=== PATIENT | male | born 1950 | race Caucasian/White ===

== ENCOUNTER → 2018-05-20 15:07 | Outpatient (CLI) | payer MEDICARE, OTHER, SELFPAY ==
--- NOTE | 2018-05-20 | DI.MRI.S_ITS ---
PROCEDURE: MR KNEE RT WO CON INDICATIONS: RIGHT KNEE PAIN TECHNIQUE: Noncontrast sagittal PD fast spin echo and T2 fast spin echo with fat saturation, sagittal 3-D FLASH with fat saturation; coronal T1 spin echo and PD fast spin echo with fat saturation, and axial PD fast spin echo with fat saturation through the knee. COMPARISON: None. FINDINGS: Image quality: Excellent. Menisci: Lateral meniscus appears intact. Complex, macerated circumferential tear of the medial meniscus involving anterior horn posterior horn and body. Cruciate ligaments: Low signal thickening of anterior cruciate ligament suggestive of chronic partial rupture. The posterior cruciate ligament appears intact. Medial structures: The medial collateral ligament appears intact. The posterior oblique ligament, semimembranosus tendon insertions, oblique popliteal ligament, and meniscocapsular junction appear intact. Visualized portions of the pes anserinus tendons appear normal. No abnormal bursal fluid. Lateral structures: The lateral collateral ligament, long and short heads of the biceps femoris tendon appear intact. The popliteus tendon appears normal; the popliteofibular ligament appears intact. The posterosuperior and anteroinferior popliteomeniscal fascicles appear intact. The arcuate and fabellofibular ligaments appear intact, on either side of the lateral inferior geniculate artery. Iliotibial band appears normal. Anterior structures: Proximal and distal patellar tendinopathy, mild. There is adjacent soft tissue edema. Distal quadriceps tendon appears intact Patellar alignment is normal. No femoral trochlear dysplasia or ventral trochlear prominence. No edema in the infrapatellar fat pad. Bones and cartilage: No focal marrow contusion or discrete low signal fracture line. Within the medial compartment, diffuse full thickness denudation of the femoral and tibial articular cartilage with underlying subchondral cystic change/marrow edema. Within the lateral compartment, intrasubstance signal change present within the central weightbearing tibial cartilage and there is diffuse partial-thickness loss of the femoral cartilage. Within the patellofemoral compartment, diffuse partial-thickness loss and surface fraying of the patellar and femoral trochlear cartilage. Joint space: Gr's cyst measuring approximately 5.1 cm in a cephalocaudad dimension. Moderate joint effusion. No intra-articular loose bodies identified. IMPRESSION: Macerated circumferential tear of the medial meniscal anterior horn, body and posterior horn. 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 Advanced joint degeneration, most notably involving the medial compartment. Gr cyst. Moderate joint effusion. Dictated by: Bong Larson M.D. on 05/20/2018 at 17:03 Approved by: Bong Larson M.D. on 05/20/2018 at 17:13
== END ==
PROVIDERS: Visit Provider Orthopaedic Surgery
DX: M25.561 Pain in right knee (principal); S83.231A Complex tear of medial meniscus, current injury, right knee, initial encounter; M71.21 Synovial cyst of popliteal space [Baker], right knee; M17.11 Unilateral primary osteoarthritis, right knee; M25.461 Effusion, right knee
CPT/HCPCS: 73721

== ENCOUNTER → 2018-11-08 12:14 | Outpatient (CLI) | payer MEDICARE, OTHER, SELFPAY | PROVIDERS: PCP Internal Medicine; Visit Provider Orthopaedic Surgery | DX: Z01.818 Encounter for other preprocedural examination (principal) | CPT/HCPCS: 93005; 93010 ==

== ENCOUNTER → 2018-11-20 11:09 | Outpatient (CLI) | payer MEDICARE, OTHER, SELFPAY ==
--- NOTE | 2018-11-20 | DI.NM.S_ITS ---
PROCEDURE: NM PATRICIA PERF SPECT R&S PHARM Rest and pharmacological stress myocardial perfusion SPECT with gated imaging and ejection fraction RADIOPHARMACEUTICAL: 24.8 mCi Tc-99m tetrafosmin IV at rest and 26.8 mCi Tc-99m tetrafosmin IV at peak effect of pharmacological stress. [id number] was performed. INDICATIONS: Atrioventricular block, 2nd degree TECHNIQUE: Radiopharmaceutical was injected at peak stress test, and also at rest. SPECT images were obtained. SPECT myocardial perfusion images were displayed in short axis, horizontal long axis, and vertical long axis views. Gated images were reviewed using [employer] software. COMPARISON: None. CARDIAC STRESS: A pharmacologic stress test was performed under the supervision of an attending staff, using an infusion of lexiscan 0.4mg IV X1. Hemodynamic data: There is normal blood pressure and heart rate response to pharmacologic stress. Symptoms: The patient denied anginal chest pain. Aminophylline: none EKG: Resting ECG shows sinus rhythm with ST depressions and T wave inversions diffusely. No diagnostic changes of ischemia with lexican; frequent PVCs throughout the study. FINDINGS: Raw data: There is good myocardial uptake of radiotracer. No significant motion artifacts. Hbhs-bl-qdiih ratio is 0.36 (normal is less than 0.38 for tetrafosmin tracer). Left ventricle function: Gated images demonstrate normal left ventricular wall thickening. No segmental wall motion abnormalities. No transient ischemic dilation; TID is 0.88 (normal less than 1.3). Left ventricle resting end diastolic volume is 161 mL. Left ventricle stress ejection fraction is 58%; normal range is above 45%. Myocardial perfusion: Severe fixed defect in the inferior wall extending to the apex consistent with prior infarct. No ischemia. SSS 6. Prone images show persistent defect as described earlier. IMPRESSION: Abnormal pharmaceutical nuclear stress test consistent with prior infarct. No ischemia 1) Severe fixed defect in the inferior wall extending to the apex consistent with prior non-transmural infarct. No ischemia. SSS 6. 2) Mildly enlarged left ventricle (EDV 161cc) with normal wall motion and normal systolic function (EF post stress 58%). 3) No ECG evidence of ischemia. Frequent PVCs during the study. 4) No angina during the study. 5) No prior nuclear stress test available for comparison. Dictated by: Jennifer Wynn MD on 11/22/2018 at 13:00 Approved by: Jennifer Wynn MD on 11/22/2018 at 13:06
--- NOTE | 2018-11-20 12:14 | PM.TREADMILL ---
Cardiac Stress Test Report Referral & Results Date Patient Seen: 11/20/18 Time Patient Seen: 12:15 Requesting provider: Alber Fraga Indication: Ventricular dysrhythmia Rest ECG: Frequent PVCs including runs of ventricular bigeminy and trigeminy and multifocal source of PVCs Procedure Note: After both written and verbal informed consent the patient had an IV started by the diagnostic imaging RN, and then was hooked up to the treadmill monitoring system. The Lexiscan material, and then the Cardiolite tracer, were administered sequentially. An additional 3 min was spent monitoring the patient while supine on the gurney. The patient had a normal response to all infused materials. Impression: No change in patient's dysrhythmia Normal response to infuse materials as above Please see perfusion imaging report for details regarding possible ischemia Please note: Actual ECG tracings can be found in the PACS system.
== END ==
PROVIDERS: PCP Internal Medicine; Visit Provider Internal Medicine
DX: I44.1 Atrioventricular block, second degree (principal)
CPT/HCPCS: 78452; 93016; 93017; 93018; A9502; J2785

== ENCOUNTER 2018-12-11 11:39 | Observation (INO) | payer MEDICARE, OTHER, SELFPAY ==
[2018-11-26 12:58] VITALS: BMI 44.5
[2018-12-10] VITALS (17 sets, daily range): BP systolic 120–160; BP diastolic 64–110; PULSE 80–114; RESP 12–20; TEMP 36.3–37.1; O2SAT 91–98; BMI 38.8
--- NOTE | 2018-12-10 06:00 | DI.RAD.S_ITS ---
PROCEDURE: XR KNEE LT 1TO2V INDICATIONS: post-op TECHNIQUE: 2 view(s) of the knee acquired. COMPARISON: None. FINDINGS: Bones: Patient is status post knee joint arthroplasty. Hardware components are in expected positions. Visualized bony structures are intact. Soft tissues: Overlying postoperative changes are noted. IMPRESSION: Normal alignment after right total the arthroplasty. A surgical drain overlies the operative bed. Dictated by: Florencio Fernandez M.D. on 12/10/2018 at 12:07 Approved by: Florencio Fernandez M.D. on 12/10/2018 at 12:07
[2018-12-10] MEDS: LACTATED RINGERS 1,000 ML 42 ML IV ×2 (07:00→10:26)
[2018-12-10] MEDS: VANCOMYCIN 1,000 MG/200 ML PIGGYBACK 200 MG IV (07:00)
[2018-12-10] MEDS: CELECOXIB 200 MG CAPSULE PO (07:15)
[2018-12-10] MEDS: PREGABALIN 75 MG CAPSULE PO (07:16)
[2018-12-10] MEDS: MIDAZOLAM 2 MG/2 ML VIAL IV (07:45)
--- NOTE | 2018-12-10 07:49 | PM.PREOP ---
Pre-operative Note Interval Note History & Physical reviewed/Exam performed by Physician: No Changes to H&P: No
--- NOTE | 2018-12-10 07:52 | P.OP_ITS ---
Operative Date/Time/Diagnoses Date of procedure: 12/10/18 Time of procedure: 08:10 Pre-op diagnosis: right knee oa Post-op diagnosis: same Procedure & Clinicians Procedure: right total knee arthroplasty Same procedure as scheduled: Yes Indications: The patient has had progressively worsening right knee pain with radiographic changes consistent with arthritis. Non-operative management has failed and the patient has requested total knee replacement. The risks, benefits and alternatives to surgery were discussed with the patient prior to proceeding. Risks discussed included, but were not limited to, failure to relieve pain, stiffness, infection, nerve damage, deep venous thrombosis, pulmonary embolism, stroke, coma, heart attack, permanent paralysis and , as well as the potential need for eventual revision of the prosthetic. Surgeon: Roxie Hdz System Technologist: Valeria Coy Anesthesia Type: General and Peripheral nerve block Operative Notes Findings: Severe right hip osteoarthritis, good stability Closure Type: primary Specimen(s): none sent Prosthetic devices, grafts, tissues, transplants, or devices: [facility] size 8 femur, size 7 tibia, +9 poly, 41 mm patella oval Applied: drain(s) Estimated Blood Loss (mL): 250 Blood products transfused: none Tourniquet time (min): 97 Procedure in detail: The patient was seen in the pre-operative area, where the patient identified the right knee as the operative site and this was marked with my initials. The patient received pre-operative antibiotics, and was taken to [facility] operating room and placed on the operative table in the supine position. After satisfactory anesthesia, a multimedia specialist out was performed. The right leg was encircled with a tourniquet about the proximal thigh, and the leg was prepared from the toes to the tourniquet with ChloroPrep in the usual fashion and draped through sterile drapes. The leg was elevated and exsanguinated with Eschmark bandage and the tourniquet inflated to [250] mmHg pressure. Hemostasis was achieved with Bovie and the Aquamantys. The knee was approached through an approximately 18 cm incision centered over the patella and carried into the knee through a medial parapatellar arthrotomy. Portion of the medial and lateral meniscus was resected. Soft tissue was carefully mobilized around the patella the patella was measured with a caliper. Bone was resected from the patella and the patellar height was reconstituted with up an appropriate sized patellar component. A cover was then placed on the patella. A small amount of additional medial and lateral meniscus was resected. The visionare guide fit well to the distal femur. It looked like an appropriate distal femoral cut and the cut was made without difficulty. The rotation was assessed and the appropriate size femoral guide was placed on the distal femur and finishing cuts were made. There is no evidence of notching. The anterior, posterior and chamfer cuts were then made. The posterior osteophytes and soft tissues were then removed. The posterior capsule was injected with part of a mixture of 60 ml 0.25% Marcaine mixed with 20 ml Exparel for post operative pain control. The remainder of this mixture was injected into the capsule and subcutaneous tissues during cement curing. The tibia was prepared and the visionaire guide fit well to the distal tibia. The rotation was assessed. The patient was placed in extension residual medial and lateral meniscus as well as any residual bone was carefully resected. [2mm] additional tibia was resected as it was a minimal skim cut. Hemostasis was achieved especially posteriorly. Additional local was injected into the posterior capsule. The extension gap was assessed and additional releases for gap balancing were performed as necessary. It was checked with the gap typing element machine operator. The femoral component was trial was placed and the notch was finished. Trial tibial and femoral components were then placed and the knee placed through a range of motion. Range of motion was [0-130], with good stability throughout the range. The trials were then removed, and the tibia was finished. The bone was prepared with pulsatile lavage, and dried with a sponge. Cement was applied and the final prosthetics placed. Excess cement was removed during and after cement curing. A brief Betadine soak was performed. After confirming there was no extruded cement posteriorly, the final tibial insert was placed. The knee was copiously irrigated and the tourniquet deflated. Hemostasis was obtained with the bovie. A drain was placed and brought out superolaterally. The capsule was closed with interrupted Vicryl suture. The subcutaneous layer was closed with barbed sutures, and the skin with a running 3-0 V-Lock suture and Surgical glue. An Aquacel Ag dressing was applied and the patient was taken to recovery having tolerated the procedure well. Complications: none Post-operative Condition: stable Disposition: Acute Care Plan for aftercare: The patient will be maintained on a standard total knee replacement protocol with weight bearing as tolerated. The patient will receive aspirin and sequential compression devices for DVT prophylaxis. The patient will be discharged home when safe for the home environment.
[2018-12-10] MEDS: CEFAZOLIN 2 GM/100 ML FROZ.PIGGY IV (08:00)
--- NOTE | 2018-12-10 08:27 | SUR.OPER ---
Supine on padded OR bed. Pillow under head, arms secured on padded armboards <90 degree abduction. Safety belt across torso. Non-operative leg secured with tape over blanket over lower leg. Operative leg secured in DeMayo positioner. Foam padded brace at thigh of operative leg.
[2018-12-10] MEDS: BUPIVACAINE LIPOSOME 266 MG/20 ML VIAL INJ (08:34)
[2018-12-10] MEDS: SODIUM CHLORIDE IRRIG SOLUTION 250 ML, POVIDONE-IODINE SPONGE STICKS 1 APPLIC IRR (08:35)
[2018-12-10] MEDS: BUPIVACAINE 0.25% W/ EPI 30 ML VIAL 60 ML INJ (08:35)
[2018-12-10] MEDS: TRANEXAMIC ACID 1,000 MG VIAL 1000 MG INJ (08:38)
--- NOTE | 2018-12-10 08:46 | P.PCN_ITS ---
Procedures Date/Time Date of procedure: 12/10/18 Time of procedure: 07:48 Nerve Block Time out performed: Yes Local anesthetic used: lidocaine 1% (5mL + 15mL 0.5opivacaine) Location of anesthetic used: adductor canal Amount of anesthesia used (mL): 20 Nerve blocks: femoral (adductor canal) Procedure successful: Yes Patient tolerated procedure: well Complications: none Additional comments: RIGHT Adductor canal block for post operative pain manag ement. R/B discussed. Site marked. Consent verified/signed. Standard ASA monitors. NC O2. 2mg midazolam. Chloraprep. Sterile technique. Femoral A/V/N identified medial mid thigh with US. Lidocaine skin wheal. 100mm x 21g Pajunk needle advanced with in-plane US guidance. Negative aspiration. LA injected medial and lateral to femoral artery. Negative aspiration throughout. No pain, no paresthesia with injection. VSS. Tolerated well. To OR.
[2018-12-10] MEDS: LACTATED RINGERS 1,000 ML 125 ML IV (12:45)
--- NOTE | 2018-12-10 13:33 | PC.NURSE ---
Pt is A&Ox3. He denies pain to his R.Knee. Pt has an acewrap with aquacel dressing in place and hemovac that was unclamped around 1300. He has bright red blood in chamber. Family in room and pt eating his lunch at this time.
[2018-12-10] MEDS: ACETAMINOPHEN 325 MG TABLET 975 MG PO ×2 (14:28→21:58)
--- NOTE | 2018-12-10 15:29 | PT.IIE ---
Current Diagnoses Unilateral primary osteoarthritis, right knee (12/10/18) Surgery Performed Operation Date: 12/10/18 07:45 Actual Procedures p Total Knee Arthroplasty(Right) - Roxie Hdz MD Surgical History (Last Updated 11/26/18 @ 14:05 by Bella Bahena, RN) H/O vasectomy (Acute) Hx of right inguinal hernia repair (Acute ~1977) Hx of tonsillectomy (Acute) Medical History (Last Updated 11/26/18 @ 14:05 by Bella Bahena RN) COPD (chronic obstructive pulmonary disease) (Acute) Enlarged prostate (Acute) Former smoker (Acute) Gout (Acute) Hearing impaired (Acute) HTN (hypertension) (Acute) Hx of strabismus (Acute) Lower back pain (Acute) Pyloric stenosis (Acute) RLS (restless legs syndrome) (Acute) Physical Therapy Inpatient Evaluation/Re-Eval M1 PT/OT-IP Prior Functional Status Start: 12/10/18 13:47 Freq: NEEDED Status: Active Protocol: Document 12/10/18 15:08 AW (Rec: 12/10/18 15:29 AW [id number]) Medical Review Prior Functional Status Medical History Reviewed Yes Diet/Fluid Consistency Regular Communication Able to make needs known Mobility and Gait Pt reports prior independence with all functional mobility, though it has been increasingly difficult due to worsening pain Activities of Daily Living and IADL's Independent Social History Household Members significant other,family Living Arrangements House Number of Floors (Floors) One Floor Number of Stairs To Enter/Railing? 2-3 ADRIAN with L rail ascending Home Environment Standard Height Toilet,Walk in Shower Home Equipment Straight Cane,Raised Toilet Seat w/Armrests,Hand Held Shower Employment Status Retired Additional Social History Comment Pt lives with 2 adult family members who are available to assist as needed. M2 PT-IP Current Condition Start: 12/10/18 13:47 Freq: NEEDED Status: Active Protocol: Document 12/10/18 15:08 AW (Rec: 12/10/18 15:29 AW [id number]) Physical Therapy Current Condition Current Condition Evaluation Date 12/10/18 Treatment Diagnosis s/p R TKA, difficulty in walking Onset Date 12/10/18 Weight Bearing Status Weight Bearing Status Weight Bear as Tolerated M3 PT-IP Subjective Start: 12/10/18 13:47 Freq: NEEDED Status: Active Protocol: Document 12/10/18 15:08 AW (Rec: 12/10/18 15:29 AW [id number]) Subjective Physical Therapy Visit Type Type Initial Evaluation Visit Start Time 14:30 Visit Stop Time 15:06 Total Visit Minutes 36 Number of DENTAL ASSISTING INSTRUCTOR Visits 0 Physical Therapy Visit Comments Patient Comments Pt visiting with multiple family members in room, willing to participate in PT eval Patient Goals Pt hopes to return to home at discharge Therapy Pain Assessment Pain When Pain Assessed During Mobility Pain Present Pain Present Pain Reported Location Right Knee Intensity 6 Scale Used 3/10 at rest; 6/10 with ambulation Pain Management Techniques Apply Cold,Elevation, Modification of Treatment, Timing of Activity with Medications M4 PT-IP Mobility and Gait Start: 12/10/18 13:47 Freq: NEEDED Status: Active Protocol: Document 12/10/18 15:08 AW (Rec: 12/10/18 15:29 AW [id number]) PT-Bed Mobility Assessment Rolling Type of Rolling Roll to Left Level of Assist Standby Assistance Supine to Sit Supine to Sit Standby Assistance Scooting Scooting to Edge of Bed Standby Assistance PT-Transfer Assessment Sit to and From Stand Sit to and from Stand Minimal Assistance Equipment Transfer Assistive Device Gait Belt,Front Wheeled Walker Orthotic/Prosthetic Devices or Brace: No Transfers Transfer Destination Bed Transfer Technique Pt ambulated out of room, returned to sit EOB Transfer Ability Level of Assist Minimal Assistance Comments Mobility Comments Pt required min assist and verbal cues to sequence sit to stand from EOB using FWW. Gait Assessment Gait Gait Assistance Required: Standby Assistance,Contact Guard Assist Distance (Feet) 50 Able to Maintain Weight Bearing Status Yes During Gait Assistive Devices Assistive Device Gait Belt,Front Wheeled Walker Orthotic/Prosthetic Devices or Brace: No Gait Deviations General Gait Pattern Antalgic,Decreased Stride Length,Decreased Feet Clearance,Flexed Trunk Factors Limiting Gait Function Factors Limiting Gait Function Decreased Activity Tolerance, Decreased Strength,Limited Range of Motion,Pain,Poor Balance Comments Gait Comments Pt required SBA for ambulation 50 ft with FWW and CGA during tight 180 degree turn. No loss of balance was noted. PT-Balance Assessment Sitting Balance and Reactions Static Sitting Balance Ability Good Dynamic Sitting Balance Ability Good Standing Balance and Reactions Static Standing Balance Ability Good Dynamic Standing Balance Ability Fair Device Used FWW M5 PT-IP Objective Assessments Start: 12/10/18 13:47 Freq: NEEDED Status: Active Protocol: Document 12/10/18 15:08 AW (Rec: 12/10/18 15:29 AW [id number]) Orientation Orientation/Cognition Level of Alertness Alert Orientation Name,Date,Place,Situation Language Function Ability No Deficits Noted Safety Awareness Decreased Safety Awareness Memory Description No Deficits Noted Comments Pt is slightly impulsive, requiring cues to slow down during transfers Gross Range of Motion Upper Extremity ROM Assessment Within Functional Limits Lower Extremity ROM Assessment Right Impaired Strength Upper Extremity Strength Assessment Within Functional Limits Lower Extremity Strength Assessment Right Impaired Coordination Assessment Gross Coordination Gross Coordination WNL Sensation Assessment Sensation Gross Sensation WNL Muscle Tone Muscle Tone WNL Yes M6 PT-IP Treatment Start: 12/10/18 13:47 Freq: NEEDED Status: Active Protocol: Document 12/10/18 15:08 AW (Rec: 12/10/18 15:29 AW [id number]) Physical Therapy Treatment Exercises Exercises Ankle Pumps,Quad Sets,Passive Knee Extension Hang M7 PT-IP Assessment and Plan Start: 12/10/18 13:47 Freq: NEEDED Status: Active Protocol: Document 12/10/18 15:08 AW (Rec: 12/10/18 15:29 AW [id number]) PT Summary Assessment and Plan Potential Rehabilitation Potential Good Status of Condition at Evaluation Evolving Summary Impairments Pain,ROM,Strength,Transfers, Gait,Activity Tolerance Assessment Summary Kg is a 68 yo man seen on POD0 following R TKA. PLOF: Pt lives with two adult family members, reports independence with functional mobility with no assistive device, and states he was independent with all ADL's, including driving and grocery shopping. CLOF: Pt required min assist and verbal cues for transfers due to pain and impulsivity; SBA to CGA for ambulation 50 ft with FWW. Pt was evaluated <8 hours following surgery, likely with effect of femoral nerve block still active. PT recommendation will most likely be for discharge to home with family assist, but will continue to assess, unable to rule out need for SNF rehab at this time. Goals Bed Mobility Goal Independent Transfer Goal Standby Assistance Gait Goal Standby Assistance Gait Distance 150 ft Other Goals up/down 3 steps using left rail ascending CGA Frequency of Treatment Frequency Of Treatment Twice a Day Treatment Plan Physical Therapy Treatment Plan Bed Mobility Training,Transfer Training,Gait Training, Therapeutic Exercise,Balance Retraining,Post Op Education, Discharge Planning,Hot or Cold Pack,Neuromuscular Re-ed, Coordination Retraining,Manual Therapy Other Recommendations and Next Treatment Progress gait distance. Trial Focus stairs. Recommendations To Nursing Amount of Assist Needed 1 Person Assist Discharge Recommendations PT Discharge Recommendations Home with 24/ Assist,SNF Rehab Other Discharge Recommendations Home with family assist vs SNF . Will continue to assess Equipment Needed for Home Before FWW. Pt has own, but it is not Discharge tall enough or wide enough for him.
--- NOTE | 2018-12-10 16:17 | SUR.PREOP ---
0740 . Monitoring initiated and maintained throughout procedure. Oxygen and medications given per anesthesiologist instructions. Patient remained stable throughout procedure, no adverse reactions noted. [id number] [].
[2018-12-10] MEDS: ATORVASTATIN 20 MG TABLET 40 MG PO (16:57)
[2018-12-10] MEDS: CEFAZOLIN VIAL 3 GM in SODIUM CHLORIDE 0.9% 100 ML 200 ML IV (17:04)
[2018-12-10] MEDS: DOCUSATE 100 MG CAPSULE PO (21:58)
[2018-12-10] MEDS: ASPIRIN EC 81 MG TABLET PO (22:22)
--- NOTE | 2018-12-10 22:49 | PC.NURSE ---
Evening note: Kg had a good night, he remains Ox3 & to situation, VS stable. Drsg to right knee is CDI, hemovac had 230 ml sero-sang drainage in the last 8 hours, I notified Dr Love of this, no new orders given. He told me to go ahead & give the baby Aspirin as previously scheduled. Patient ambulated in [place] with P.T. Later tonight sat up at side of bed and ate snack. Denies numbness to RLE, said it's waking up. Rates pain 4/10, refused any med stronger than the scheduled TYlenol at this time, I instructed him to call nurse if pain increases--he is agreeable to this plan. Wearing bilateral SCD's. CMS intact. Fall precautions in place.
[2018-12-11] MEDS: CEFAZOLIN VIAL 3 GM in SODIUM CHLORIDE 0.9% 100 ML 200 ML IV (00:02)
[2018-12-11] MEDS: ACETAMINOPHEN 325 MG TABLET 975 MG PO (05:04)
[2018-12-11 05:40] VITALS: BP 163/75; PULSE 80; RESP 19; TEMP 36.2; O2SAT 92
[2018-12-11 06:04] LABS: Hematocrit 38.9 % (41-53); Hemoglobin 13.2 g/dL (13.5-17.5)
[2018-12-11] MEDS: TIOTROPIUM BROMIDE 18 MCG INHALER INH (06:07)
[2018-12-11 06:08] VITALS: O2SAT 95
[2018-12-11 07:00] VITALS: BP 142/72; PULSE 76; RESP 14; TEMP 36.9; O2SAT 94
--- NOTE | 2018-12-11 07:00 | PC.NURSE ---
Pt VSS, lung sounds clear bilaterally. Pt is ambulating to bathroom and bearing weight. Continues only to have PO tylenol for pain /.
[2018-12-11] MEDS: ALLOPURINOL 100 MG TABLET PO (08:40)
[2018-12-11] MEDS: ASPIRIN EC 81 MG TABLET PO (08:40)
[2018-12-11] MEDS: DOCUSATE 100 MG CAPSULE PO (08:40)
[2018-12-11] MEDS: LISINOPRIL 20 MG TABLET 40 MG PO (08:40)
--- NOTE | 2018-12-11 09:20 | PT.IPTN ---
Current Diagnoses Unilateral primary osteoarthritis, right knee (12/10/18) Surgery Performed Operation Date: 12/10/18 07:45 Actual Procedures p Total Knee Arthroplasty(Right) - Roxie Hdz MD Physical Therapy Treatment Note M2 PT-IP Current Condition Start: 12/10/18 13:47 Freq: NEEDED Status: Active Protocol: Document 12/10/18 15:08 AW (Rec: 12/10/18 15:29 AW [id number]) Physical Therapy Current Condition Current Condition Evaluation Date 12/10/18 Treatment Diagnosis s/p R TKA, difficulty in walking Onset Date 12/10/18 Weight Bearing Status Weight Bearing Status Weight Bear as Tolerated M3 PT-IP Subjective Start: 12/10/18 13:47 Freq: NEEDED Status: Active Protocol: Document 12/11/18 09:20 GGD (Rec: 12/11/18 12:13 GGD [id number]) Subjective Physical Therapy Visit Type Type Treatment Note Visit Start Time 08:55 Visit Stop Time 09:20 Total Visit Minutes 25 Number of DIRECTOR AUDIENCE MARKETING Visits 1 Physical Therapy Visit Comments Patient Comments PT states he doing better. Therapy Pain Assessment Pain When Pain Assessed During Mobility Pain Present Pain Present Pain Reported Location Right Knee Intensity 3 Scale Used Numeric (1 - 10) M4 PT-IP Mobility and Gait Start: 12/10/18 13:47 Freq: NEEDED Status: Active Protocol: Document 12/11/18 09:20 GGD (Rec: 12/11/18 12:13 GGD [id number]) PT-Bed Mobility Assessment Supine to Sit Supine to Sit Standby Assistance Scooting Scooting to Edge of Bed Standby Assistance PT-Transfer Assessment Sit to and From Stand Sit to and from Stand Contact Guard Assistance,1 Person Assistance,Use of Upper Extremities Equipment Transfer Assistive Device Gait Belt,Front Wheeled Walker Orthotic/Prosthetic Devices or Brace: No Transfers Transfer Destination Bed Transfer Ability Level of Assist Contact Guard Assistance Gait Assessment Gait Gait Assistance Required: Standby Assistance Distance (Feet) 260 Able to Maintain Weight Bearing Status Yes During Gait Assistive Devices Assistive Device Gait Belt,Front Wheeled Walker Orthotic/Prosthetic Devices or Brace: No Gait Deviations General Gait Pattern Antalgic,Decreased Stride Length,Decreased Feet Clearance,Flexed Trunk Factors Limiting Gait Function Factors Limiting Gait Function Decreased Activity Tolerance, Decreased Strength,Limited Range of Motion,Pain,Poor Balance Stair Climbing Assessment Evaluation Level of Assist On Stairs Contact Guard Assistance Devices Stair Climbing Assistive Devices Left Railing Technique/Endurance Stair Climbing Direction Ascend and Descend Stair Climbing Technique Step to Step Number of Steps Climbed 3 Stair Climbing Set # Repetitions (reps) 1 M5 PT-IP Objective Assessments Start: 12/10/18 13:47 Freq: NEEDED Status: Active Protocol: Document 12/10/18 15:08 AW (Rec: 12/10/18 15:29 AW [id number]) Orientation Orientation/Cognition Level of Alertness Alert Orientation Name,Date,Place,Situation Language Function Ability No Deficits Noted Safety Awareness Decreased Safety Awareness Memory Description No Deficits Noted Comments Pt is slightly impulsive, requiring cues to slow down during transfers Gross Range of Motion Upper Extremity ROM Assessment Within Functional Limits Lower Extremity ROM Assessment Right Impaired Strength Upper Extremity Strength Assessment Within Functional Limits Lower Extremity Strength Assessment Right Impaired Coordination Assessment Gross Coordination Gross Coordination WNL Sensation Assessment Sensation Gross Sensation WNL Muscle Tone Muscle Tone WNL Yes M6 PT-IP Treatment Start: 12/10/18 13:47 Freq: NEEDED Status: Active Protocol: Document 12/11/18 09:20 GGD (Rec: 12/11/18 12:13 GGD [id number]) Physical Therapy Treatment Exercises Exercises Ankle Pumps,Quad Sets,Heel Slides,Seated Knee Flexion/ Extension M7 PT-IP Assessment and Plan Start: 12/10/18 13:47 Freq: NEEDED Status: Active Protocol: Document 12/11/18 09:20 GGD (Rec: 12/11/18 12:13 GGD [id number]) PT Summary Assessment and Plan Summary Assessment Summary Pt improving with mobility. He was able to progress gait distance. He was safe and stable with stair mobility. Pt safe for home D/C when medically stable. Frequency of Treatment Frequency Of Treatment Twice a Day Treatment Plan Physical Therapy Treatment Plan Bed Mobility Training,Transfer Training,Gait Training, Therapeutic Exercise,Balance Retraining,Post Op Education, Discharge Planning,Hot or Cold Pack,Neuromuscular Re-ed, Coordination Retraining,Manual Therapy Recommendations To Nursing Amount of Assist Needed 1 Person Assist Discharge Recommendations PT Discharge Recommendations Home with Assistance, Outpatient PT
--- NOTE | 2018-12-11 13:16 | PC.NURSE ---
1200 dcd hemovac, covered site w/two folded 4x4s secured with tape. Pt britta well
--- NOTE | 2018-12-11 16:00 | CM.DANOTE ---
Patient is a 68 year old male who was admitted on 12/10/18 for Osteoarthritis Right Knee. Pt has [employer] for insurance and his PCP is Dr. Alber Fraga. EMR was reviewed. Per Ortho PA, pt is , retired and plans to d/c home with sister and brother inlaw assist. Per PT, recommending that pt is safe to d/c home with family assist and outpt PT. SW met bedside with pt, sister, brother inlaw, and another family member and explained role and pt confirms that he lives at home with family and is Independent with ADL's at baseline and still drives. Pt denies any hx of HH or SNF and preference is to d/c home later today via family vehicle. No concerns or needs at this time. Outpt PT set up already at [facility] in [place]. Per RN, figuring out hemovac prior to pt d/c home today. Plan: Patient to d/c home via family POV this afternoon and no SW needs at this time. DUYEN Arriaga Discharge Planning/Care Management CM Discharge Assessment Start: 12/11/18 15:59 Freq: Status: Active Protocol: Document 12/11/18 16:00 BF (Rec: 12/11/18 16:00 BF [id number]) Discharge Planning Assessment Assigned Upper Shaper ALEC Warren Advance Directives? Yes Advance Directives on File Yes History Provided By Patient,Medical Record Has Patient been admitted in last 30 No days? 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 Pt denies any knowledge/symptoms of a prior [place]. Echo @ [facility] 11/21/18. PCP gave clearance 11/28/18. All records scanned to chart Patient Also Known As (AKA) Kg Patient Information Reviewed Via Phone Assessment Assessment Completed With Patient Diagnostic Results BMP/CMP,CBC,EKG Comment Outside labs scanned to record . EKG @ 11/08/18-Abnormal Primary Care Provider Alber Fraga Medical Clearance Received Yes Seen Specialist in Last 12 Months Yes Specialist Seen Orthopedist Comment PCP clearance 11/28/18 scanned to record Primary Language Kuwaiti Senior Systems Administrator Required No Height 187.96 cm Weight 157.397 kg Body Mass Index (BMI) 44.5 Hearing Ability Hard of Hearing Visual Assist Glasses,Magnifying Glass Dentition Type Full- Upper & Lower Barriers to Learning None Other Aids No Hx Anesthesia Reactions No Hx Family Anesthesia Reaction No Hx Malignant Hyperthermia No Hx Blood Transfusions No Anesthesia Review Requested No alcohol intake current alcohol intake frequency holidays/special occasions only Smoking Status Former smoker Smoking packs per day 2 how long ago did patient quit smoking Quit 1985, smoked x approx 25 years Substance Use Type does not use Pain Present Pain Reported Musculoskeletal Symptoms Abnormal Gait,Back Pain, Difficulty Walking,Joint Pain, Muscle Weakness History of Falling (Recent or History of No ) Patient is completely paralyzed or No completely immobile Mental Status Oriented to own ability Is patient on oxygen? No Does patient have SOLORZANO/SOB Yes: SOLORZANO r/t COPD over last 6 years Hx Sleep Apnea No Currently Taking a Beta Sunday No Can You Climb a Flight of Stairs Without No SOB Hx Chest Pain No Hx SOB Yes: OSLORZANO r/t COPD over last 6 years Hx Syncope or Dizziness No Anti-Coagulant Therapy No Has a Auxiliary Engineer No Cardiac Testing Yes: Stress test @ [facility] 11/08/18- Abnormal, ECHO 11/21/18 Hx Pacemaker/ICD No Pacemaker Rep Required? No Cardiac Clearance Received Not Applicable Diet Type At Home Low Carb dysphagia No Bladder Pattern Frequency,Nocturia Urinary Catheter Present No Hx Urinary Self Catheterization No Diabetes No HgbA1C 5.7 Date 11/08/18 Hx Drug Resistant Organism No Presence of External or Internal Medical No Devices Have you traveled outside the [facility] in the last 30 days? Marital Status / Lives With family Prior Living Arrangements House Number of Floors (Floors) One Floor Support System Sibling(s) Does the Patient Have Assistance After Yes Surgery Patient Discharge Plan Description Return Home Comment Pt advised overnight length of stay per surgeon's office Feels Safe in Current Environment Yes Been Physically Hurt or Threatened By a No Person in Current Environment Do you have thoughts of harming yourself None or others? Are you currently considering suicide? No Do you have a plan to hurt yourself or No Plan others? Do You Have Any Spiritual Beliefs That No May Affect Your HC Choices? Do You Have Any Cultural Practices That No May Affect Your HC Choices? Comment Druze Who Can We Speak to About Patient's Care Family, friends Identifying Code for Release of Patient Declines to issue Information Health Care Proxy/Next of Kin Marcelle (sister) Health Care Proxy Emergency Contact Name Ian ([id number]) Emergency Contact Advance Directives? Yes Advance Directives on File No Requested Patient Bring Advanced Yes Directives DOS PAC Instructions Durable medical equipment, Medications to take/avoid, Nasal antibiotic,No ETOH/ petroleum product on skin DOS, NPO,Post-op transportation,Pre -surgical wash,Sensory aids, Sturdy shoes/comfortable clothes,Do not bring valuables and remove jewelry
--- NOTE | 2018-12-11 17:25 | PM.DS.1 ---
History of Present Illness History of Present Illness Date Patient Seen: 12/11/18 Time Patient Seen: 08:00 Chief complaint: [id number] Narrative: The patient has had progressively worsening right knee pain with radiographic changes consistent with arthritis. Non-operative management has failed and the patient has requested total knee replacement. The risks, benefits and alternatives to surgery were discussed with the patient prior to proceeding. Risks discussed included, but were not limited to, failure to relieve pain, stiffness, infection, nerve damage, deep venous thrombosis, pulmonary embolism, stroke, coma, heart attack, permanent paralysis and , as well as the potential need for eventual revision of the prosthetic. Discharge Providers Provider Date of admission: 12/11/18 11:39 Discharge Date: 12/11/18 Primary care physician: Alber Fraga MD Consults: 11/21/18 10:27 Consult to Anesthesiology Routine Comment: Consulting Provider: Anesthesiologist Reason for consultation: Regional block for post operative pain control 12/10/18 06:00 Consult to Anesthesiology Routine Comment: Consulting Provider: Anesthesiologist Reason for consultation: Regional block for post operative pain control 12/10/18 08:40 Consult to Respiratory Therapy Evaluate & Treat Comment: COPD, BMI 39, post TKA Physician Instructions: Evaluate and treat 12/10/18 12:49 Consult to Discharge Planning Routine Comment: Consult to Physical Therapy Evaluate & Treat Comment: Physician Instructions: postop TKA protocol Consult to Respiratory Therapy Evaluate & Treat Comment: Physician Instructions: Evaluate and treat Discharge provider: Mark Samuel PA-C Summary Hospital Course Discharge Diagnosis: s/p right total knee arthroplasty obesity hypertension gout COPD Hospital Course: Jaswinder was admitted for right total knee arthroplasty with Dr. Hdz. Hospital course was unremarkable. On postop day 1. The patient was ready to discharge home. He was eating and voiding without difficulty or assistance. He worked with physical therapy throughout his stay. He has outpatient physical therapy scheduled. Drain was removed prior to discharge. Dressing was CDI at discharge. Exam Vital Signs (past 8 hours): Oxygen Delivery Method Room Air Oxygen Flow Rate 0 Narrative Exam Narrative: Patient lying in bed in no acute distress. Alert and oriented x3. Calves are soft, compressible, nontender bilaterally. Pulses are symmetrical. He is able to actively dorsiflex and plantar flex. Sensation intact to light touch over bilateral lower extremities. Negative Homans sign. Patient's pain was well controlled overnight with Tylenol. He has been icing. No complaints this morning. Objective Labs Result Diagrams: 12/11/18 05:35 Labs: Laboratory Results - last 24 hr 12/11/18 05:35 Hgb 13.2 L Hct 38.9 L Discharge Plan Discharge Plan Patient Disposition: Home Discharge Med Rec/Prescriptions Prescriptions: Continued atorvastatin 40 mg Tablet 40 mg PO QPM RF: 0 allopurinol 100 mg Tablet 100 mg PO DAILY RF: 0 albuterol sulfate 90 mcg/actuation Hfa Aerosol Inhaler 1 puff INHALATION Q4-6H PRN (Reason: COPD) RF: 0 lisinopril 40 mg Tablet 40 mg PO DAILY RF: 0 Spiriva with HandiHaler 18 mcg Capsule, W/Inhalation Device 1 cap INHALATION DAILY RF: 0 colchicine 0.6 mg Capsule 0.6 mg PO BID PRN (Reason: Gout) RF: 0 Changed aspirin 81 mg Tablet,Delayed Release (Dr/Ec) 81 mg PO BID Qty: 60 RF: 0 ibuprofen 200 mg Tablet 400 mg PO Q3H PRN (Reason: Pain) Qty: 60 RF: 0 acetaminophen 500 mg Capsule 500 mg PO Q4H PRN (Reason: Pain) Qty: 60 RF: 0 Follow up/Referrals: Alber Fraga MD [Primary Care Provider] - Roxie Hzd MD [Physician] - Provider Discharge Instructions Diet: Regular Activity: Ambulate as tolerated. Continue total knee precautions per [facility] protocol Cold/Heat Therapy: Continue cold therapy Skin/Wound/Dressing Care Report to your healthcare provider any signs of infection, such as:: chills, fever, increased pain and unusual drainage Dressing: Keep dressing dry. If dressing becomes saturated, contact the office. Visit Report/Discharge Packet Instructions: DI for Knee Replacement Stand Alone Forms: Surgery Discharge Visit Report Forms: Stroke Signs & Symptoms Discharge Data Primary Care Provider: Alber Fraga Attending Provider: Roxie Hdz Admit Date/Time: 12/11/18 11:39 Discharges patient from system. Discharge Date/Time: 12/11/18 12:50
== END 2018-12-11 12:50 | disposition home or self-care (01) ==
LOC: AC 12:17 → OR 13:33 → AC 13:35 → OR 13:35
PROVIDERS: Admitting Provider Orthopaedic Surgery; PCP Internal Medicine; Visit Provider Orthopaedic Surgery
PROC: 0SRC0JZ Replacement of Right Knee Joint with Synthetic Substitute, Open Approach (ICD-10-PCS; CPT 27447; principal; 2018-12-10 07:45)
DX: M17.11 Unilateral primary osteoarthritis, right knee (principal); G89.18 Other acute postprocedural pain
CPT/HCPCS: 27447; 36415; 64447; 64450; 73560; 85014; 85018; 94640; 94760; 97110; 97116; 97161; 97530; C1776; G0378; C9290; J0690; J1100; J2250; J2405; J2704; J3010